=== PATIENT | male | born 1955 | race Caucasian/White ===

== ENCOUNTER → 2019-07-23 | Outpatient (CLI) | payer BC, OTHER ==
[~2019-07-23] VITALS: Ht 170.2 cm; Wt 114.0 kg
[~2019-07-23] MED LIST: CARDIZEM CD240 MG PO; CO Q-10100 MG PO; COQ-10100 MG PO; COREG25 MG PO; COZAAR 50 MG TA50 M1 PO; DILTIAZEM ER180 M2 PO; EXFORGE 10-3201 EACH PO; FISH OIL 1,001000 M2 PO; GLUCOPHAGE XR750 MG PO; HYDRALAZINE 2525 MG PO; HYDROCHLOROTHIA25 M2 PO; KLOR-CON 1010 MEQ PO; LASIX 20 MG TAB20 MG PO; MAXZIDE-25 MG1 EACH PO; NIFEDIPINE ER60 M1 PO; NOVOLIN N100 UNIT/3 SQ; NOVOLOG100 UNIT/1 SUBQ; OMEGA-31000 M1; PROBIOTIC1 EAC1 PO; PROSCAR 5MG TABL5 MG PO; SOLIQUA 100 UNIT3 ML SUBQ; TRESIBA FL200 UNIT/1 SQ; UNICOMPLEX M TA1 TA1 PO; VITAMIN B125000 MCG PO; VITAMIN D1000 UNI1; ZOCOR20 MG PO
[2019-07-23 06:56] VITALS: BP 169/90
[2019-07-23 07:30] LABS: ABSOLUTE NEUTROPHILS 3.2 thou/uL (1.4-8.2); EOSINOPHILS 5.1 % (0.0-3.0); HEMATOCRIT 39.9 % (42.0-52.0); HEMOGLOBIN 13.4 gm/dL (14.0-18.0); LYMPHOCYTES 29.8 % (24.0-44.0); MCH 29.3 pg (26.0-34.0); MCHC 33.7 g/dL (28.0-37.0); MCV 86.8 fL (80.0-100.0); MONOCYTES 9.3 % (1.0-8.0); PLATELET COUNT 266 thou/uL (150-400); POLYS 54.8 % (36.0-66.0); RDW 14.8 % (10.5-14.5); WBC 5.8 thou/uL (4.0-11.0)
[2019-07-23 07:38] LABS: CALCIUM 9.3 mg/dL (8.5-10.1); CREATININE 1.3 mg/dL (0.7-1.3); POTASSIUM 3.2 mmol/L (3.5-5.1)
[2019-07-23 07:41] LABS: APTT 29.2 Seconds (24.5-32.8); PROTIME 10.7 Seconds (9.3-11.4)
[2019-07-23 07:44] LABS: ALBUMIN 3.8 g/dL (3.4-5.0); TOTAL BILIRUBIN 0.4 mg/dL (<0.1-1.0); TOTAL PROTEIN 7.8 g/dL (6.4-8.2)
--- NOTE | 2019-07-23 08:09 | EKG ---
[address] [address] ELECTROCARDIOGRAM REPORT Name: CUCO REED Room #: [facility]#: [id number] Admission: 07/23/19 Attend Phys: Blayne Young MD Discharge: Date of : 51 Report #: [id number] THIS REPORT FOR: //name// [facility]ly [facility] Test Date: 2019-07-23 Test Time: 07:51:49 Pat Name: CUCO REED Department: Room: Gender: Residential [employer] Technician: Gregorio STEWART : 1955 Requested By: Blayne Young Order Number: [id number] MD: Blayne Young Measurements Intervals [place] Rate: 77 P: 52 IN: 164 QRS: -44 QRSD: 103 T: 32 QT: 415 QTc: 470 Interpretive Statements Sinus rhythm Left axis deviation No previous ECG available for comparison Electronically Signed On 07-23-2019 8:09:39 CDT by Blayne Young [email or web address] <ELECTRONICALLY SIGNED> By: Blayne Young MD 07/23/19 0809 [id number] Blayne Young MD /ESTEFANY
--- NOTE | 2019-07-23 12:09 | NUR ---
Care assumed by DYLAN Brown at this time.
--- NOTE | 2019-07-31 12:27 | H ---
[address] [address] HISTORY AND PHYSICAL Name: CUCO REED Room #: REG [facility]#: [id number] Admission: 07/23/19 Attend Phys: Blayne Young MD Discharge: Date of : 51 Report #: [id number] THIS REPORT FOR: //name// CC: Aster Young DATE OF SERVICE: 07/23/2019 HISTORY OF PRESENT ILLNESS: The patient is a 63 year old with history of SVT here for SVT ablation. He denies any chest pain, shortness of breath, PND, orthopnea, presyncope or syncope. REVIEW OF SYSTEMS: A 12-point review of systems was performed and was negative other than what I mentioned above. PAST MEDICAL HISTORY: 1. SVT. 2. Coronary artery disease. 3. Hypertension. 4. Chronic renal insufficiency. 5. Diastolic heart failure. ALLERGIES: None. MEDICATIONS: Reviewed. SOCIAL HISTORY: Does not smoke. FAMILY HISTORY: Noncontributory. PHYSICAL EXAMINATION: VITAL SIGNS: Stable. GENERAL: No acute distress. HEENT: Oropharynx clear. NECK: Supple, no thyromegaly. HEART: Regular rate and rhythm. LUNGS: Clear to auscultation bilaterally. ABDOMEN: Soft, nontender, nondistended. EXTREMITIES: No clubbing, cyanosis, edema. NEUROLOGIC: Cranial nerves 2-12 are intact. LABORATORY DATA: Reviewed. ASSESSMENT: Supraventricular tachycardia. [address] [place] [address] HISTORY AND PHYSICAL Name: CUCO REED [facility] [id number] Admission: 07/23/19 Attend Phys: Blayne Young MD Discharge: Date of : 51 Report #: [id number] PLAN: We will proceed with an ablation as previously documented. <ELECTRONICALLY SIGNED> By: Blayne Young MD 07/31/19 1227 1205 1210 Blayne Young MD /nt
--- NOTE | 2019-08-11 14:02 | P ---
[facility] [place] [address] PROCEDURE REPORT Name: CUCO REED Eric Room #: REG [facility]#: [id number] Admission: 07/23/19 Attend Phys: Blayne Young MD Discharge: Date of : 51 Report #: [id number] THIS REPORT FOR: //name// CC: Aster Young PREOPERATIVE DIAGNOSIS: Supraventricular tachycardia. POSTOPERATIVE DIAGNOSIS: Typical atrioventricular tiffany reentrant tachycardia. PROCEDURES PERFORMED: 1. SVT ablation, CPT code 66288. 2. EP with left atrial pacing and recording, CPT code 65728. 3. Program stimulation and pacing after IV drug infusion, CPT code 16187. 4. 3D mapping, CPT code 05210. ANESTHESIA: The patient underwent MAC anesthesia with no anesthesia related complications. DESCRIPTION OF PROCEDURE: The patient underwent informed consent. We discussed the details of the procedure including the risks, which include but not limited to bleeding, vascular damage, cardiac perforation, stroke, CT as well as damage to the [place] conduction system requiring permanent pacemaker. The patient understood these risks and is willing to proceed. The patient was brought to the EP laboratory in fasting and sedated state and prepped and draped in a sterile fashion. I injected lidocaine to the bilateral groin regions and obtained access to the right and left femoral veins placing an 8 and 6-Slovenian short sheath in the right femoral vein and a 6 and 7-Slovenian short sheath in the left femoral vein. Under fluoroscopy, I placed 3 quadripolar catheters at HRA, His and RV positions and a decapolar catheter into the coronary sinus, which was used for left atrial pacing and recording. At baseline, the patient was in sinus rhythm with sinus cycle length of 607 milliseconds, VA interval 150 milliseconds, QRS duration 100 milliseconds, QT interval 385 milliseconds, AH interval 100 milliseconds, and HV interval of 39 milliseconds. Next, atrial burst pacing was performed and AV block was noted at 290 milliseconds. Single atrial extrastimuli were delivered and atrial ERP was noted at 190 milliseconds at [address] cycle length. Next, ventricular pacing was performed. VA block was noted at 360 milliseconds. Ventricular ERP was noted at 230 milliseconds at [address] cycle length. VA conduction was both midline and decremental. Isoproterenol was initiated at 2 mcg per minute and with atrial pacing, I did induce atrial fibrillation, which terminated after 10-20 seconds on its own. Next, with additional pacing, the patient went into SVT with a tachycardia cycle length of 420 milliseconds, septal VA time of 35 milliseconds, but this failed [facility] [address] [place] [address] PROCEDURE REPORT Name: CUCO REED Room #: REG [facility].#: [id number] Admission: 07/23/19 Attend Phys: Blayne Young MD Discharge: Date of : 51 Report #: [id number] ventricular entrainment. I therefore increased isoproterenol to 4 mcg per minute. AV block was noted at 250 milliseconds. Single, double, and triple extrastimuli were delivered, and I could not induce further SVT. I continued with aggressive atrial pacing maneuvers and could not re-induce the SVT. However, given his clinical situation and induction of what appeared to be typical AV tiffany reentrant tachycardia, I decided to perform a slow pathway modification. Next, I removed my HRA catheter and sheath and placed a SR0 sheath and a 4-mm Biosense Albarran ablation catheter at the level of the slow pathway. I performed ablation at 50 gamez and 55 degrees and I performed a total of 6 lesions. We had very good junctional response with these lesions. As such, post-ablation testing was performed. Again AV block was noted at 290 milliseconds and atrial ERP was noted at 230 milliseconds at a [address] cycle length. Isoproterenol was initiated at 2 mcg per minute and AV block was noted at 260 milliseconds. Additional testing was performed and then I up titrated isoproterenol to 4 mcg per minute. AV block was noted at 250 milliseconds. Atrial ERP was noted at 220 milliseconds at [address] cycle length. I could not induce any SVT nor did I have any single or double AV tiffayn echoes. Isoproterenol was turned off and we continued testing and again no SVT was induced. Post-ablation, the patient remained in sinus rhythm. As such, all catheters and sheaths were pulled. Hemostasis was obtained and the patient awoke neurologically and hemodynamically intact. CONCLUSIONS: 1. Successful ablation of typical AV tiffany reentrant tachycardia. 2. Normal SA tiffany function. 3. Normal AV tiffany function. 4. Normal His-Purkinje function. 5. No other inducible arrhythmias on or off isoproterenol. <ELECTRONICALLY SIGNED> By: Blayne Young MD 08/11/19 1402 1218 [id number] Blayne Young MD /nt
== END | disposition home or self-care (01) ==
LOC: CATH 06:34
PROVIDERS: Internal Medicine Cardiovascular Disease
DX: I47.1 Supraventricular tachycardia (principal); I13.0 Hypertensive heart and chronic kidney disease with heart failure and stage 1 through stage 4 chronic kidney disease, or unspecified chronic kidney disease; E11.22 Type 2 diabetes mellitus with diabetic chronic kidney disease; N18.9 Chronic kidney disease, unspecified; I50.30 Unspecified diastolic (congestive) heart failure; I25.10 Atherosclerotic heart disease of native coronary artery without angina pectoris; E78.00 Pure hypercholesterolemia, unspecified; Z87.442 Personal history of urinary calculi; Z98.890 Other specified postprocedural states; Z79.4 Long term (current) use of insulin; Z79.899 Other long term (current) drug therapy
CPT/HCPCS: 62110; 62900; 70005